=== PATIENT | female | born 1980 | race Caucasian/White ===

== ENCOUNTER 2019-03-11 08:57 | Emergency (ER) | payer MEDICAID ==
[~2019-03-11] VITALS: Ht 157.5 cm; Wt 87.5 kg
[2019-03-11 09:01] VITALS: BP 119/72
--- NOTE | 2019-03-11 09:06 | NUR ---
PT AMBULATED TO ER BED 04
--- NOTE | 2019-03-11 09:07 | NUR ---
38 Y FEMALE BIB SELF C/O LEFT ARM AND SHOULDER PAIN S/P FALL AT HOME. PT STATES SHE TRIPPED OVER A PILE OF CLOTHES AND LANDED ON HER L SIDE. DENIES LOC. PT REPORTS 18 WEEKS ; DENIES ABDOMINAL PAIN, BACK PAIN, SPOTTING. LMP 10/2018. PAIN 9/10, SHARP WITH MOVEMENT. +ROM. +CMS. STATES SHE TOOK TYLENOL WITH NO RELIEF. VSS AT THIS TIME. PT [id number]. BED IS DOWN, LOCKED, BED RAIL X 1, ERMD TO SEE PT. HX: DENIES RX: DENIES
--- NOTE | 2019-03-11 09:08 | NUR ---
SP FALL YESTERDAY. PT TOOK THE TYLENOL YESTERDAY.
--- NOTE | 2019-03-11 09:15 | NUR ---
DR GILL AT BEDSIDE FOR PT EVALUATION
[2019-03-11] MEDS ORDERED: ACETAMINOPHEN 325 MG TAB PO ONE (09:20)
--- NOTE | 2019-03-11 09:25 | NUR ---
PAIN 7/10 AFTER TYLENOL ADMINISTERED PO
[2019-03-11 09:26] VITALS: BP 119/72
--- NOTE | 2019-03-11 09:26 | NUR ---
Patient discharged with v/s stable. Written and verbal after care instructions given and explained. Patient verbalized understanding. Ambulatory with steady gait. All questions addressed prior to discharge. Advised to follow up with PMD.
== END 2019-03-11 09:26 | disposition home or self-care (01) ==
LOC: MED 08:57
DX: O9A.212 Injury, poisoning and certain other consequences of external causes complicating pregnancy, second trimester (principal); S46.912A Strain of unspecified muscle, fascia and tendon at shoulder and upper arm level, left arm, initial encounter; Z3A.18 18 weeks gestation of pregnancy; Z90.49 Acquired absence of other specified parts of digestive tract; W01.0XXA Fall on same level from slipping, tripping and stumbling without subsequent striking against object, initial encounter; Y93.89 Activity, other specified; Y92.009 Unspecified place in unspecified non-institutional (private) residence as the place of occurrence of the external cause; Y99.8 Other external cause status
CPT/HCPCS: 81025; 99282